=== PATIENT | male | born 1940 | race Caucasian/White ===

== ENCOUNTER 2016-12-09 07:55 | Day surgery (SDC) | payer MEDICARE, BC ==
[~2016-12-09 07:55] MED LIST: *CPAP; ALDACTONE25 M1 PO; ASPIRIN EC81 MG PO; FENOFIBRATE200 M1 PO; ISOSORBIDE MONO30 M4 PO; LIPITOR40 M1 PO; NORVASC5 M2 PO; PLAVIX75 M1 PO; PRINIVIL20 M1 PO; PROTONIX40 M2 PO; RANEXA500 M1 PO; TOPROL XL25 M1 PO; VITAMIN D50000 UNI2 PO; [UNRECOGNIZED DRUG - OTHER] PO
== END 2016-12-10 12:10 ==
LOC: SRG 07:55 → SHSC 07:57 → ORW 10:48 → PACU 12:59 → CAR1 15:10
PROC: 0FT44ZZ Resection of Gallbladder, Percutaneous Endoscopic Approach (ICD-10-PCS; principal; 2016-12-09)
PROC: 0WUF4JZ Supplement Abdominal Wall with Synthetic Substitute, Percutaneous Endoscopic Approach (ICD-10-PCS; 2016-12-09)
DX: K80.10 Calculus of gallbladder with chronic cholecystitis without obstruction (principal); K43.2 Incisional hernia without obstruction or gangrene; K42.0 Umbilical hernia with obstruction, without gangrene; I25.10 Atherosclerotic heart disease of native coronary artery without angina pectoris; K66.0 Peritoneal adhesions (postprocedural) (postinfection); E66.9 Obesity, unspecified; G47.30 Sleep apnea, unspecified; K21.9 Gastro-esophageal reflux disease without esophagitis; F10.10 Alcohol abuse, uncomplicated; I12.9 Hypertensive chronic kidney disease with stage 1 through stage 4 chronic kidney disease, or unspecified chronic kidney disease; E11.22 Type 2 diabetes mellitus with diabetic chronic kidney disease; N18.3 Chronic kidney disease, stage 3 (moderate); E78.5 Hyperlipidemia, unspecified; D64.9 Anemia, unspecified; Z79.02 Long term (current) use of antithrombotics/antiplatelets; Z79.82 Long term (current) use of aspirin; Z79.899 Other long term (current) drug therapy; Z88.8 Allergy status to other drugs, medicaments and biological substances; Z87.891 Personal history of nicotine dependence; Z86.010 Personal history of colon polyps; Z95.1 Presence of aortocoronary bypass graft; Z95.5 Presence of coronary angioplasty implant and graft; Z96.651 Presence of right artificial knee joint; Z98.890 Other specified postprocedural states
CPT/HCPCS: C1781; J0690; J1170; J2250; J3010; J7030; J7050